=== PATIENT | male | born 1950 | race African-American/Black ===

== ENCOUNTER 2017-07-18 06:00 | Emergency (ER) | payer OTHER, MEDICAID ==
[~2017-07-18] VITALS: Ht 172.7 cm; Wt 90.0 kg
[2017-07-18] MEDS ORDERED: ONDANSETRON HCL 4MG/2ML VIAL IV STA (06:41)
[2017-07-18] MEDS ORDERED: MORPHINE SULFATE 4 MG/ML CPJ (NOT FOR IM USE) IV STA (06:41)
[2017-07-18] MEDS ORDERED: SODIUM CHLORIDE 0.9% 1,000 ML IV ONE (06:41)
[2017-07-18] MEDS ORDERED: MECLIZINE 25MG TABLET PO ONE (06:45)
[2017-07-18 07:25] LABS: BASOPHILS % 1.3 % (0.0-2.0); EOSINOPHILS % 1.3 % (0.0-5.0); HEMOGLOBIN. 14.2 g/dL (14.0-18.0); LYMPHOCYTES % 31.2 % (20.0-50.0); MEAN CORPUSCULAR HEMOGLOBIN 27.4 pg (28.0-32.0); MEAN CORPUSCULAR VOLUME 82.8 fL (80.0-94.0); MONOCYTES % 7.8 % (2.0-8.0); NEUTROPHILS % 58.4 % (40.0-76.0); PLATELET 335 x1000/uL (130-400); RED BLOOD CELL COUNT 5.19 mill/uL (4.7-6.1); RED CELL DISTRIBUTION WIDTH 15.2 % (11.6-14.6)
[2017-07-18 07:33] LABS: INR 1.1; PROTHROMBIN TIME 11.1 sec (9.4-11.6)
[2017-07-18 07:39] LABS: CHLORIDE 108 mEq/L (98-107); TROPONIN I < 0.02 ng/mL (0.00-0.04)
[2017-07-18 08:57] VITALS: BP 120/73
== END 2017-07-18 09:10 | disposition home or self-care (01) ==
LOC: ER 06:20
DX: H81.10 Benign paroxysmal vertigo, unspecified ear (principal); F17.200 Nicotine dependence, unspecified, uncomplicated; D72.829 Elevated white blood cell count, unspecified; Z88.0 Allergy status to penicillin
CPT/HCPCS: 36415; 70450; 80053; 83880; 84484; 85025; 85610; 93005; 96361; 96374; 96375; 99285; J2270; J2405; J7030; J8597